=== PATIENT | male | born 1960 | race Caucasian/White ===

== ENCOUNTER 2017-03-17 16:07 | Emergency (ER) | payer MEDICAID ==
[~2017-03-17] VITALS: Wt 75.0 kg
[~2017-03-17 16:07] MED LIST: ALBU8.5H3 INH; CETI10CA PO; GUAI120S26 PO; PRED50TA PO
[2017-03-17] MEDS ORDERED: LIDOCAINE 1% (MDV) 20 ML INJ SC ONE (17:00)
[2017-03-17] MEDS ORDERED: DIPHTH/TET/ACEL PERTUSS (ADULT) 0.5 ML VIAL IM* ONE (17:00)
--- NOTE | 2017-03-17 17:41 | RADRPT ---
PROCEDURE: CT Brain without contrast. CLINICAL INDICATION: Pain, headache TECHNIQUE: Routine CT scan of the brain was performed on a high resolution multi detector scanner without intravenous contrast. One or more of the following dose reduction techniques were used: Auto mated exposure control; Adjustment of the mA and/or kV according to patient size; Use of iterative r econstruction technique. CTDI = 43 mGy. DLP = 720 mGy-cm. COMPARISON: No prior relevant examinations are available for comparison. FINDINGS: Hemorrhage: No evidence of intracranial hemorrhage. Acute ischemic changes: No evidence of acute ischemic changes. Mass effect/Midline shift: None. Parenchymal volume: Within normal limits for age. Ventricular system: Concordant with parenchymal volume. Chronic changes: Parenchymal attenuation is within normal limits. Atherosclerotic calcifications of the cavernous portions of both internal carotid arteries are present. Extracranial soft tissues: Unremarkable. Calvarium: No fractures. Paranasal sinuses: Visualized paranasal sinuses are clear. Mastoid air cells: Visualized mastoid air cells are clear. IMPRESSION: No acute intracranial abnormalities. Normal appearance of the brain parenchyma. RPTAT: AADD .Geronimo Pedroza MD, MD Date Time Electronically viewed and signed by .Geronimo Pedroza MD, on 03/17/2017 17:40 .B/
[2017-03-17 18:12] VITALS: BP 150/85; PULSE 75; RESP 19; TEMP 98.5
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
== END 2017-03-17 18:13 | disposition home or self-care (01) ==
LOC: FTE 16:07
DX: S01.112A Laceration without foreign body of left eyelid and periocular area, initial encounter (principal); J45.909 Unspecified asthma, uncomplicated; Y08.89XA Assault by other specified means, initial encounter; Z23 Encounter for immunization
CPT/HCPCS: 12013; 70450; 90715; Z7610; 90471

== ENCOUNTER 2017-03-19 07:24 | Emergency (ER) | payer MEDICAID ==
[~2017-03-19] VITALS: Ht 160 cm; Wt 89.0 kg
[2017-03-19 07:26] VITALS: Ht 160 cm; Wt 89.0 kg
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
== END 2017-03-19 07:53 | disposition home or self-care (01) ==
LOC: FTE 07:24
DX: Z48.01 Encounter for change or removal of surgical wound dressing (principal); J45.909 Unspecified asthma, uncomplicated
CPT/HCPCS: 99281